=== PATIENT | female | born 1965 | race Caucasian/White ===

== ENCOUNTER 2018-01-11 05:30 | Emergency (ER) | payer MEDICAID ==
[~2018-01-11] VITALS: Ht 167.6 cm; Wt 116.2 kg
[~2018-01-11 05:30] MED LIST: ALPR1TAB2 PO; GABA800T2 PO; VENL150C PO; ZIPR80CA2 PO
[2018-01-11 05:31] VITALS: BP 122/82
[2018-01-11] MEDS ORDERED: DIPH,PERTUSS(ACELL),TET VAC/PF 0.5 ML IM-VACC ONE ×2 (05:57→06:00)
[2018-01-11] MEDS ORDERED: LIDOCAINE-MPF 2% ,5ML ONE (05:57)
[2018-01-11] MEDS ORDERED: LIDOCAINE-MPF 1%, 5ML INFIL ONE (06:00)
[2018-01-11] MEDS ORDERED: BACITRACIN ZINC OINT 500U/GM, 0.9 GM ONE (07:07)
== END 2018-01-11 07:31 | disposition home or self-care (01) ==
LOC: ED 06:50
DX: S61.011A Laceration without foreign body of right thumb without damage to nail, initial encounter (principal); W45.8XXA Other foreign body or object entering through skin, initial encounter; Y93.89 Activity, other specified; Y92.098 Other place in other non-institutional residence as the place of occurrence of the external cause; Y99.8 Other external cause status
CPT/HCPCS: 12002; 90715; 96372